=== PATIENT | female | born 1940 | race Caucasian/White ===

== ENCOUNTER → 2017-01-26 | Outpatient (CLI) | payer MEDICARE, BC | END | disposition disaster alternative care site (69) | LOC: GAMB 21:07 | DX: R42 Dizziness and giddiness (principal); M25.562 Pain in left knee | CPT/HCPCS: A0425; A0427 ==

== ENCOUNTER → 2017-05-29 | Emergency (ER) | payer MEDICARE, BC | END | disposition disaster alternative care site (69) | LOC: GAMB 00:56 | DX: Z91.81 History of falling (principal) ==